=== PATIENT | female | born 1980 | race Caucasian/White ===

== ENCOUNTER 2019-02-26 17:15 | Emergency (ER) | payer OTHER ==
[~2019-02-26] VITALS: Ht 167.6 cm; Wt 73.5 kg
[2019-02-26] MEDS ORDERED: IV RINGERS SOLUTION,LACTATED 1,000 ML IV SCH (17:25)
--- NOTE | 2019-02-26 17:25 | PHYS DOC ---
Adult General Chief Complaint Chief Complaint: ".. I ve been sick since Sunday.. chils, fever, cough, hurt everywhere... Sunday doing over the counter stuff.. Tylenol and cold.. Flu and cough meds.. just not getting better... " HPI HPI Patient is a 38 year old female who presents with above hx and complaints of fever, cough, chills, malaise, myalgia, arthralgia. Recent did not get flu vaccination this season. No recent travel. No specific ill contacts. No intake of bad food. Has had nausea and vomiting and diarrhea. Has been taking [id number] Tylenol cold medicine and fever and cough medicines [id number] with no relief in symptoms. No recent travel. Patient does sm conner. No history immunosuppression. Review of Systems Review of Systems Constitutional: History of fever or chills [] Eyes: Denies change in visual acuity, redness, or eye pain [] HENT: History of nasal congestion and sore throat [] Respiratory: History of a nonproductive cough and some wheezing Cardiovascular: No additional information not addressed in HPI [] GI: Complaints of nausea, vomiting, and diarrhea [] : Denies dysuria or hematuria [] Musculoskeletal: Complaints of myalgia and arthralgia Integument: Denies rash or skin lesions [] Neurologic: Denies headache, focal weakness or sensory changes [] Endocrine: Denies polyuria or polydipsia [] All other systems were reviewed and found to be within normal limits, except as documented in this note. Family History Family History Noncontributory Current Medications Current Medications See nursing for home medications Allergies Allergies Allergic to Benadryl Physical Exam Physical Exam Constitutional: Moderate acute distress, non-toxic appearance. [] HENT: Normocephalic, atraumatic, bilateral external ears normal, oropharynx dry, mild injection of pharynx no oral exudates, nose swollen turbinates and rhinorrhea Eyes: PERRLA, EOMI, conjunctiva normal, no discharge. [] Neck: Normal range of motion, no tenderness, supple, no stridor. [] Cardiovascular: Tachycardia Heart rate regular rhythm, no murmur [] Lungs & Thorax: Bilateral breath sounds equal at apex with few scattered wheezes on auscultation [] Abdomen: Bowel sounds hyperactive, soft, no focal tenderness, no masses, no pulsatile masses. [No rebound] Skin: Warm, dry, no erythema, no rash. [] Back: No tenderness, no CVA tenderness. [] Extremities: No tenderness, no cyanosis, no clubbing, ROM intact, no edema. [] No psoas sign Neurologic: Alert and oriented X 3, normal motor function, normal sensory function, no focal deficits noted. [] Psychologic: Affect anxious, judgement normal, mood normal. [] EKG EKG [] Radiology/Procedures Radiology/Procedures [] Course & Med Decision Making Course & Med Decision Making Pertinent Labs and Imaging studies reviewed. (See chart for details) patient's stay on a clear fluid diet for the next 2 days. Clear fluids only must allow bowel rest no solid no milk products. Take Tylenol and ibuprofen for discomfort. Take Zofran for active vomiting. Use MDI 2 puffs 4 times a day. Follow-up primary care. For marked myalgia may take Vicoprofen. Follow-up primary care. Return if any concerns. 1. Viral Syndrome 2. Dehydration 3. Bronchitis 3. Leukopenia 3.2 with elevated monocytes 19 4. Mild thrombocytopenia. 136 5. Mild elevation in creatinine 1.1 6.. Drug screen positive for marijuana and cocaine [] Dragon Disclaimer Dragon Disclaimer This electronic medical record was generated, in whole or in part, using a voice recognition dictation system. Departure Departure: Disposition: 01 HOME/RESIDENCE PRIOR TO ADM Condition: STABLE Referrals: PCP,NO (PCP) Scripts Ondansetron Hcl (ZOFRAN) 8 Mg Tablet 8 MG PO QIDPRN PRN for active nausea and vomiting, #30 BOTTLE Prov: ERICK ACOSTA MD 02/26/19 Hydrocodone/Ibuprofen (HYDROCODONE-IBUPROFEN 7.5-200 ) 1 Each Tablet 1 TAB PO PRN Q6HRS PRN for PAIN, #30 TAB 0 Refills Prov: ERICK ACOSTA MD 02/26/19 Dragchiquis Disclaimer This chart was dictated in whole or in part using Voice Recognition software in a busy, high-work load, and often noisy Emergency Department environment. It may contain unintended and wholly unrecognized errors or omissions. Dragon Disclaimer This chart was dictated in whole or in part using Voice Recognition software in a busy, high-work load, and often noisy Emergency Department environment. It may contain unintended and wholly unrecognized errors or omissions. ERICK ACOSTA MD Feb 26, 2019 17:25
[2019-02-26] MEDS ORDERED: ONDANSETRON PF 4 MG/2 ML VIAL. IVP ONE (17:30)
[2019-02-26] MEDS ORDERED: FAMOTIDINE 20 MG/2 ML VIAL IVP ONE (17:30)
[2019-02-26 18:31] LABS: BASO % 1 % (0-3); EOS % 0 % (0-3); HEMATOCRIT 40.4 % (36.0-47.0); HEMOGLOBIN 13.4 g/dL (12.0-15.5); LYMPH # 0.4 x10^3/uL (1.0-4.8); LYMPH % 12 % (24-48); MEAN CORPUSCULAR HEMOGLOBIN 31 pg (25-35); MEAN CORPUSCULAR HGB CONC 33 g/dL (31-37); MEAN CORPUSCULAR VOLUME 94 fL (79-100); MONO # 0.6 x10^3/uL (0.0-1.1); MONO % 19 % (0-9); NEUT # 2.2 x10^3uL (1.8-7.7); NEUT % 69 % (31-73); PLATELET COUNT 136 x10^3/uL (140-400); RED BLOOD COUNT 4.29 x10^6/uL (3.50-5.40); RED CELL DISTRIBUTION WIDTH 13.6 % (11.5-14.5); WHITE BLOOD COUNT 3.2 x10^3/uL (4.0-11.0)
[2019-02-26 18:33] LABS: ALBUMIN 3.4 g/dL (3.4-5.0); CALCIUM 8.6 mg/dL (8.5-10.1); CREATININE 1.1 mg/dL (0.6-1.0); GFR 55.9; TOTAL BILIRUBIN 0.2 mg/dL (0.2-1.0); TOTAL PROTEIN 6.9 g/dL (6.4-8.2)
[2019-02-26 18:34] LABS: POTASSIUM 3.6 mmol/L (3.5-5.1)
[2019-02-26 18:44] LABS: DIRECT BILIRUBIN 0.1 mg/dL (0.0-0.2)
[2019-02-26] MEDS ORDERED: MORPHINE SULFATE 10 MG/ML SYRINGE. SQ ONE (19:15)
[2019-02-26] MEDS ORDERED: ALBUTEROL SULFATE 8GM INHALER. INH ONE (19:15)
[2019-02-26] MEDS ORDERED: predniSONE 10 MG TABLET PO ONE (19:15)
[2019-02-26 20:09] LABS: INFLUENZA A PATIENT NEGATIVE (NEGATIVE); INFLUENZA B PATIENT NEGATIVE (NEGATIVE)
[2019-02-26] MEDS ORDERED: ONDA8TAB9 PO (20:18)
[2019-02-26] MEDS ORDERED: HYDR-1179 PO (20:18)
[2019-02-26 20:20] VITALS: BP 137/80
[2019-02-26 20:37] LABS: BILIRUBIN,URINE NEG (NEG); CLARITY,URINE CLOUDY; COLOR,URINE AMBER; GLUCOSE,URINE NEG (NEG); NITRITE,URINE NEG (NEG); RBC,URINE 0 /HPF (0-2); UROBILINOGEN,URINE 0.2 mg/dL (0.2 mg/dL)
[2019-02-26 20:38] LABS: BACTERIA,URINE FEW /HPF (0-FEW); SQUAMOUS EPITHELIAL CELL,UR FEW /LPF
[2019-02-26 20:42] LABS: BARBITURATES NEG (NEG); BENZODIAZEPINES NEG (NEG); CANNABINOIDS POS (NEG); COCAINE POS (NEG); METHADONE NEG (NEG); OPIATES NEG (NEG); PHENCYCLIDINE NEG (NEG)
[2019-02-26 20:46] LABS: AMPHETAMINE/METHAMPHETAMINE NEG (NEG)
[2019-02-26 21:10] LABS: % ATYL 1 % (0-0); % BANDS 6 % (0-9); % BASOS 1 % (0-3); % LYMPHS 7 % (24-48); % MONOS 14 % (0-10); % SEGS 71 % (35-66)
[2019-02-26 21:11] LABS: PLT ESTIMATE DECREASED (ADEQUATE); TOXIC GRANULATION PRESENT; TOXIC VACUOLATION PRESENT
== END 2019-02-26 20:34 | disposition home or self-care (01) ==
LOC: ER 17:15
DX: B34.9 Viral infection, unspecified (principal); E86.0 Dehydration; J40 Bronchitis, not specified as acute or chronic; D72.819 Decreased white blood cell count, unspecified; D69.6 Thrombocytopenia, unspecified; R79.0 Abnormal level of blood mineral; F12.10 Cannabis abuse, uncomplicated; F14.10 Cocaine abuse, uncomplicated
CPT/HCPCS: 36415; 80048; 80076; 80307; 81001; 81025; 82150; 83690; 84484; 84702; 85007; 85025; 85610; 85730; 87070; 87804; 87880; 94640; 96361; 96372; 96374; 96375; 99285; J2270; J2405; J3490; J7120; J7512; J7613; 94664

== ENCOUNTER 2019-03-11 02:12 | Emergency (ER) | payer OTHER ==
[~2019-03-11 02:12] MED LIST: HYDR-1179 PO; ONDA8TAB9 PO
--- NOTE | 2019-03-11 02:17 | PHYS DOC ---
Past History Past Medical History: No Pertinent History Past Surgical History: No Surgical History Alcohol Use: Rarely Drug Use: None Adult General Chief Complaint Chief Complaint: patient left before you room placement- beds filled and critical care patient HPI HPI Patient is a 38 year old female who presents with above hx and complaints back of pain.. Patient left before room placement. Did not supply a urine. Review of Systems Review of Systems Musculoskeletal: Presenting complaint of back pain Integument: Denies rash or skin lesions [] Allergies Allergies Allergies Coded Allergies Type Severity Reaction Last Updated Verified diphenhydramine Allergy Unknown 02/26/19 Yes Physical Exam Physical Exam Patient left before room placement or physician evaluation- EKG EKG [] Radiology/Procedures Radiology/Procedures [] Course & Med Decision Making Course & Med Decision Making Pertinent Labs and Imaging studies reviewed. (See chart for details) Left before this evaluation and room placement. Did not supply a urrine while in waiting room[] Dragon Disclaimer Dragon Disclaimer This electronic medical record was generated, in whole or in part, using a voice recognition dictation system. Departure Departure: Disposition: 01 HOME/RESIDENCE PRIOR TO ADM Condition: STABLE Referrals: PCP,ADI (PCP) ERICK ACOSTA MD Mar 11, 2019 02:17
== END 2019-03-11 03:25 | disposition left against medical advice (07) ==
LOC: ER 02:12
DX: M54.9 Dorsalgia, unspecified (principal); Z53.21 Procedure and treatment not carried out due to patient leaving prior to being seen by health care provider